=== PATIENT | male | born 1995 | race Two or more races ===

== ENCOUNTER 2021-04-21 13:10 | Emergency (ER) | payer MEDICAID, OTHER ==
[~2021-04-21] VITALS: Ht 180.3 cm; Wt 81.6 kg
[2021-04-21] MEDS ORDERED: KETOROLAC TROMETH 60MG/2ML VIAL IM ONE (15:45)
[2021-04-21] MEDS ORDERED: IBUPROFEN 800 MG TAB PO ONE (16:15)
[2021-04-21 16:52] VITALS: BP 135/88
== END 2021-04-21 16:52 | disposition home or self-care (01) ==
LOC: ER 13:10
DX: H10.89 Other conjunctivitis (principal)
CPT/HCPCS: 70486; 99284; J1885